=== PATIENT | female | born 1985 | race African-American/Black ===

== ENCOUNTER 2016-05-13 10:04 | Outpatient (CLI) | payer BC ==
--- NOTE | 2016-05-13 11:38 | DIAGNOSTIC IMAGING REPORT ---
PROCEDURE: XR UPPER GI WITH AIR INDICATION: NAUSEA TECHNIQUE: Real time fluoroscopy was used on the upper GI system. Total fluoro time 3.6 minutes. Cumulative dose 3928.11 mGy 89 images obtained including cine imaging and last image hold screen capture images. COMPARISON: None. FINDINGS: The swallowing mechanism is normal without laryngeal penetration or aspiration. The esophagus is normal in course, contour, and caliber. No irregularities. No hiatal hernia. Normal motility. Trace, likely physiologic, inducible gastroesophageal reflux. The stomach contour is normal. Mucosal pattern is normal. Prompt gastric emptying. Normal duodenal sweep and proximal jejunum. IMPRESSION: 1. Normal upper GI.
== END 2016-05-13 23:00 ==
LOC: XR SRH 10:04
DX: R11.0 Nausea (principal)